=== PATIENT | male | born 1950 ===

== ENCOUNTER 2022-06-22 13:45 | Inpatient (IN) | payer MEDICARE, OTHER ==
[~2022-06-22] VITALS: Ht 185.4 cm; Wt 120.4 kg
[2022-06-22] MEDS ORDERED: SODIUM CHLORIDE 0.9% 1,000 ML IV ONE ×3 (14:00→21:45)
[2022-06-22] MEDS ORDERED: ASPirin 325 MG TAB PO ONE (14:00)
[2022-06-22 14:28] LABS: Basophils # (auto) 0 10 ^3/uL (0-0.2); Basophils % (auto) 0.3 % (0.0-2.0); Eosinophils # (auto) 0 10 ^3/uL (0-0.8); Eosinophils % (auto) 0.1 % (0.0-7.0); Hemoglobin 14.7 g/dL (13.5-17.5); Lymphocytes # (auto) 0.8 10 ^3/uL (0.4-5.4); Mean Corpuscular Hemoglobin 28.7 pg (28.0-32.0); Mean Corpuscular Hgb Conc. 31.8 g/dL (32.0-36.0); Mean Corpuscular Volume 90.2 fL (80.0-100.0); Monocytes # (auto) 0.5 10 ^3/uL (0-1.3); Monocytes % (auto) 3.1 % (0.0-12.0); Neutrophils # (auto) 15.6 10 ^3/uL (1.6-8.6); Neutrophils % (auto) 91.5 % (37.0-80.0); Nucleated Red Blood Cells % 0.1 %; Red Cell Distribution Width 14.9 % (11.8-14.3)
[2022-06-22 14:39] LABS: Albumin 3.5 g/dL (3.4-5.0); BUN/Creatinine Ratio 11.6; Calcium 10.3 mg/dL (8.5-10.1); Potassium 4.3 mmol/L (3.5-5.1)
[2022-06-22 14:42] LABS: Bilirubin, Total 1.4 mg/dL (0.2-1.0); Total Protein 7.8 g/dL (6.4-8.2)
[2022-06-22 16:27] LABS: Lactic Acid w/Reflex 3.1 mmol/L (0.4-2.0)
[2022-06-22 17:09] LABS: Urine Bacteria FEW /hpf (None Seen); Urine Blood 3+ /uL (Negative); Urine Specific Gravity 1.017 (1.001-1.035); Urine WBC 90 /hpf (0 - 3); Urine WBC Clumps PRESENT /hpf (None Seen)
[2022-06-22] MEDS ORDERED: cefTRIAXone 1GM/50ML D5W 50 ML IV ONE (18:15)
[2022-06-22] MEDS ORDERED: LOVA40TA72 PO (20:30)
[2022-06-22] MEDS ORDERED: TRIA75TA55 PO (20:30)
[2022-06-22] MEDS ORDERED: GLIM4TAB42 PO (20:30)
[2022-06-22] MEDS ORDERED: TAMS1CAP25 PO (20:30)
[2022-06-22] MEDS ORDERED: HYDR50TA15 PO (20:30)
[2022-06-22] MEDS ORDERED: NITROGLYCERIN 0.4 MG SL TAB SL PRN (21:15)
[2022-06-22] MEDS ORDERED: ONDANSETRON HCL 4 MG/2 ML VIAL IV PRN (21:15)
[2022-06-22] MEDS ORDERED: MORPHINE SULFATE INJ 2 MG/ml SYRG IV PRN (21:15)
[2022-06-22] MEDS ORDERED: ACETAMINOPHEN 325 MG TAB PO ONE (21:45)
[2022-06-22] MEDS ORDERED: VANCOMYCIN PER PHARMACY 0 MG IV SCH (23:30)
[2022-06-22] MEDS ORDERED: ENOXAPARIN SOD 100 MG/1 ML SYRINGE SC ONE (23:30)
[2022-06-22] MEDS: SODIUM CHLORIDE 0.9% 1,000 ML IV SCH (23:40)
[2022-06-22] MEDS ORDERED: VANCOMYCIN 1GM/250ML 500 ML IV ONE (23:45)
[2022-06-22 23:53] LABS: BUN/Creatinine Ratio 12.1; Calcium 9.9 mg/dL (8.5-10.1); Potassium 4.1 mmol/L (3.5-5.1)
[2022-06-23] MEDS ORDERED: SODIUM CHLORIDE 0.9% 500 ML IV ONE (03:00)
[2022-06-23 05:08] LABS: Basophils # (auto) 0 10 ^3/uL (0-0.2); Basophils % (auto) 0.2 % (0.0-2.0); Eosinophils # (auto) 0 10 ^3/uL (0-0.8); Hematocrit 38.6 % (41.0-53.0); Hemoglobin 13.1 g/dL (13.5-17.5); Lymphocytes # (auto) 0.7 10 ^3/uL (0.4-5.4); Lymphocytes % (auto) 5.3 % (10.0-50.0); Mean Corpuscular Hemoglobin 30.1 pg (28.0-32.0); Mean Corpuscular Volume 88.7 fL (80.0-100.0); Monocytes # (auto) 0.4 10 ^3/uL (0-1.3); Monocytes % (auto) 3.2 % (0.0-12.0); Neutrophils # (auto) 11.3 10 ^3/uL (1.6-8.6); Neutrophils % (auto) 91.3 % (37.0-80.0); Red Blood Cells 4.35 10^6/uL (4.5-5.90); Red Cell Distribution Width 14.4 % (11.8-14.3); White Blood Cell 12.4 10^3/uL (4.4-10.8)
[2022-06-23 05:28] LABS: Potassium 3.7 mmol/L (3.5-5.1)
[2022-06-23 05:34] LABS: Albumin 2.8 g/dL (3.4-5.0); BUN/Creatinine Ratio 13.8; Bilirubin, Total 1.1 mg/dL (0.2-1.0); Calcium 9.2 mg/dL (8.5-10.1); Total Protein 6.6 g/dL (6.4-8.2)
[2022-06-23] MEDS: ENOXAPARIN SOD 120 MG/0.8 ML SYRINGE SC SCH (09:04)
[2022-06-23] MEDS: PANTOPRAZOLE 40 MG TAB PO SCH (09:05)
[2022-06-23] MEDS: cefTRIAXone 1GM/50ML D5W 50 ML IV SCH (09:05)
[2022-06-23] MEDS ORDERED: ENOXAPARIN SOD 40 MG/0.4 ML SYRINGE SC SCH (10:00)
[2022-06-23] MEDS: SODIUM CHLORIDE 0.9% 1,000 ML IV SCH (10:42)
[2022-06-23] MEDS: ACETAMINOPHEN 325 MG TAB PO PRN ×2 (11:47→20:18)
[2022-06-23 15:54] VITALS: BP 98/60
[2022-06-23 16:19] VITALS: BP 104/62
[2022-06-23 21:53] VITALS: BP 101/63
[2022-06-24] MEDS: VANCOMYCIN 1GM/250ML 250 ML IV SCH (01:49)
[2022-06-24 05:00] VITALS: BP 114/64
[2022-06-24 06:26] LABS: Basophils # (auto) 0 10 ^3/uL (0-0.2); Basophils % (auto) 0.4 % (0.0-2.0); Eosinophils # (auto) 0.2 10 ^3/uL (0-0.8); Hematocrit 38.5 % (41.0-53.0); Hemoglobin 12.6 g/dL (13.5-17.5); Lymphocytes # (auto) 0.5 10 ^3/uL (0.4-5.4); Lymphocytes % (auto) 6.4 % (10.0-50.0); Mean Corpuscular Hemoglobin 29.6 pg (28.0-32.0); Mean Corpuscular Hgb Conc. 32.6 g/dL (32.0-36.0); Mean Corpuscular Volume 90.8 fL (80.0-100.0); Monocytes # (auto) 0.4 10 ^3/uL (0-1.3); Neutrophils # (auto) 6.3 10 ^3/uL (1.6-8.6); Neutrophils % (auto) 85.2 % (37.0-80.0); Nucleated Red Blood Cells % 0.1 %; Red Blood Cells 4.24 10^6/uL (4.5-5.90); Red Cell Distribution Width 14.5 % (11.8-14.3); White Blood Cell 7.4 10^3/uL (4.4-10.8)
[2022-06-24 06:35] LABS: BUN/Creatinine Ratio 13.4; Calcium 8.8 mg/dL (8.5-10.1); Potassium 3.8 mmol/L (3.5-5.1)
[2022-06-24] MEDS: SODIUM CHLORIDE 0.9% 1,000 ML IV SCH ×2 (07:47→13:15)
[2022-06-24] MEDS: cefTRIAXone 1GM/50ML D5W 50 ML IV SCH (08:49)
[2022-06-24] MEDS: PANTOPRAZOLE 40 MG TAB PO SCH (08:50)
[2022-06-24] MEDS: ENOXAPARIN SOD 120 MG/0.8 ML SYRINGE SC SCH (08:50)
[2022-06-24 09:00] VITALS: BP 116/68
[2022-06-24 12:47] VITALS: BP 115/70
[2022-06-24] MEDS ORDERED: TOLTERODINE TARTRATE 1 MG TAB PO ONE (14:00)
[2022-06-24 16:59] VITALS: BP 127/68
[2022-06-24] MEDS ORDERED: DEXTROSE (50%) 50ML SYRG IV PRN (17:00)
[2022-06-24] MEDS: InsuLIN REG 1unit/0.01ml Soln (100units/ml) SC SCH ×2 (17:00→22:00)
[2022-06-24] MEDS: ACETAMINOPHEN 325 MG TAB PO PRN ×2 (17:02→22:09)
[2022-06-24] MEDS: ACCU-CHEK COMFORT CURVE STRIP VI SCH ×2 (17:55→22:13)
[2022-06-24 22:00] VITALS: BP 117/68
[2022-06-24] MEDS ORDERED: ENOXAPARIN SOD 120 MG/0.8 ML SYRINGE SC SCH (22:00)
[2022-06-24] MEDS: TOLTERODINE TARTRATE 1 MG TAB PO SCH (22:12)
[2022-06-25] MEDS: VANCOMYCIN 1GM/250ML 250 ML IV SCH (01:26)
[2022-06-25] MEDS: SODIUM CHLORIDE 0.9% 1,000 ML IV SCH ×2 (04:19→15:55)
[2022-06-25] MEDS: ACETAMINOPHEN 325 MG TAB PO PRN ×2 (04:20→09:14)
[2022-06-25 05:00] VITALS: BP 127/76
[2022-06-25 06:23] LABS: Basophils # (auto) 0 10 ^3/uL (0-0.2); Basophils % (auto) 0.4 % (0.0-2.0); Eosinophils # (auto) 0.1 10 ^3/uL (0-0.8); Eosinophils % (auto) 2.1 % (0.0-7.0); Hematocrit 36.3 % (41.0-53.0); Hemoglobin 11.9 g/dL (13.5-17.5); Lymphocytes # (auto) 0.5 10 ^3/uL (0.4-5.4); Lymphocytes % (auto) 8.4 % (10.0-50.0); Mean Corpuscular Hemoglobin 29.3 pg (28.0-32.0); Mean Corpuscular Hgb Conc. 32.9 g/dL (32.0-36.0); Mean Corpuscular Volume 89.1 fL (80.0-100.0); Monocytes # (auto) 0.4 10 ^3/uL (0-1.3); Monocytes % (auto) 6.7 % (0.0-12.0); Neutrophils # (auto) 5.1 10 ^3/uL (1.6-8.6); Neutrophils % (auto) 82.4 % (37.0-80.0); Red Blood Cells 4.08 10^6/uL (4.5-5.90); Red Cell Distribution Width 14.4 % (11.8-14.3); White Blood Cell 6.2 10^3/uL (4.4-10.8)
[2022-06-25 06:36] LABS: Calcium 8.4 mg/dL (8.5-10.1); Potassium 3.7 mmol/L (3.5-5.1)
[2022-06-25] MEDS: InsuLIN REG 1unit/0.01ml Soln (100units/ml) SC SCH ×4 (07:00→21:46)
[2022-06-25] MEDS: ACCU-CHEK COMFORT CURVE STRIP VI SCH ×4 (08:05→21:46)
[2022-06-25 09:00] VITALS: BP 116/45
[2022-06-25] MEDS ORDERED: LIDOCAINE 2% JELLY 11ml (GLYDO) UR ONE (09:15)
[2022-06-25] MEDS: TOLTERODINE TARTRATE 1 MG TAB PO SCH ×2 (10:00→21:52)
[2022-06-25] MEDS: cefTRIAXone 1GM/50ML D5W 50 ML IV SCH (11:12)
[2022-06-25] MEDS: PANTOPRAZOLE 40 MG TAB PO SCH (11:12)
[2022-06-25 12:38] VITALS: BP 108/68
[2022-06-25 16:45] VITALS: BP 114/70
[2022-06-25 22:08] VITALS: BP 112/67
[2022-06-26 04:56] VITALS: BP_SYST 137
[2022-06-26] MEDS: SODIUM CHLORIDE 0.9% 1,000 ML IV SCH ×2 (05:37→18:37)
[2022-06-26 06:33] LABS: Basophils # (auto) 0 10 ^3/uL (0-0.2); Basophils % (auto) 0.4 % (0.0-2.0); Eosinophils # (auto) 0.2 10 ^3/uL (0-0.8); Eosinophils % (auto) 3.5 % (0.0-7.0); Hematocrit 37.6 % (41.0-53.0); Hemoglobin 12.2 g/dL (13.5-17.5); Lymphocytes # (auto) 0.7 10 ^3/uL (0.4-5.4); Lymphocytes % (auto) 11.4 % (10.0-50.0); Mean Corpuscular Hemoglobin 28.9 pg (28.0-32.0); Mean Corpuscular Hgb Conc. 32.4 g/dL (32.0-36.0); Mean Corpuscular Volume 89.2 fL (80.0-100.0); Monocytes # (auto) 0.5 10 ^3/uL (0-1.3); Monocytes % (auto) 7.7 % (0.0-12.0); Neutrophils # (auto) 4.6 10 ^3/uL (1.6-8.6); Red Blood Cells 4.22 10^6/uL (4.5-5.90); Red Cell Distribution Width 14.2 % (11.8-14.3); White Blood Cell 5.9 10^3/uL (4.4-10.8)
[2022-06-26] MEDS: ACCU-CHEK COMFORT CURVE STRIP VI SCH ×4 (06:47→21:52)
[2022-06-26] MEDS: InsuLIN REG 1unit/0.01ml Soln (100units/ml) SC SCH ×4 (06:47→21:53)
[2022-06-26 06:52] LABS: Potassium 3.5 mmol/L (3.5-5.1)
[2022-06-26 07:00] LABS: BUN/Creatinine Ratio 13.7; Calcium 8.6 mg/dL (8.5-10.1)
[2022-06-26 09:00] VITALS: BP 124/79
[2022-06-26] MEDS: cefTRIAXone 1GM/50ML D5W 50 ML IV SCH (09:23)
[2022-06-26] MEDS: TOLTERODINE TARTRATE 1 MG TAB PO SCH ×2 (09:23→21:51)
[2022-06-26] MEDS ORDERED: PROPOFOL 10 MG/ML 20 ML IV ONE (10:51)
[2022-06-26] MEDS ORDERED: MIDAZOLAM HCL 2MG/2ML 2ml VIAL (1mg/ml) ONE (10:52)
[2022-06-26] MEDS ORDERED: fentaNYL CITRATE 100 MCG/2 ML VL ONE ×2 (10:52→11:10)
[2022-06-26] MEDS ORDERED: ONDANSETRON HCL 4 MG/2 ML VIAL IV PRN (11:45)
[2022-06-26] MEDS ORDERED: HYDROmorphone HCL 2 MG/ML VL/or syr IV PRN (11:45)
[2022-06-26 13:00] VITALS: BP 115/69
[2022-06-26] MEDS ORDERED: ENOXAPARIN SOD 100 MG/1 ML SYRINGE SC SCH (16:00)
[2022-06-26] MEDS: ENOXAPARIN SOD 100 MG/1 ML SYRINGE SC SCH (16:58)
[2022-06-26 17:00] VITALS: BP 122/67
[2022-06-26 21:41] VITALS: BP 109/67
[2022-06-27] MEDS: ACETAMINOPHEN 325 MG TAB PO PRN (01:38)
[2022-06-27 04:48] VITALS: BP 110/72
[2022-06-27] MEDS: ENOXAPARIN SOD 100 MG/1 ML SYRINGE SC SCH (05:40)
[2022-06-27] MEDS: ACCU-CHEK COMFORT CURVE STRIP VI SCH ×3 (06:30→16:50)
[2022-06-27 06:31] LABS: Basophils # (auto) 0.1 10 ^3/uL (0-0.2); Basophils % (auto) 1.1 % (0.0-2.0); Eosinophils # (auto) 0.4 10 ^3/uL (0-0.8); Eosinophils % (auto) 7.7 % (0.0-7.0); Hematocrit 35.6 % (41.0-53.0); Hemoglobin 11.7 g/dL (13.5-17.5); Lymphocytes # (auto) 0.9 10 ^3/uL (0.4-5.4); Lymphocytes % (auto) 19.2 % (10.0-50.0); Mean Corpuscular Hemoglobin 29.2 pg (28.0-32.0); Mean Corpuscular Hgb Conc. 32.8 g/dL (32.0-36.0); Mean Corpuscular Volume 89.1 fL (80.0-100.0); Monocytes # (auto) 0.3 10 ^3/uL (0-1.3); Neutrophils # (auto) 3.1 10 ^3/uL (1.6-8.6); Red Cell Distribution Width 14.7 % (11.8-14.3); White Blood Cell 4.8 10^3/uL (4.4-10.8)
[2022-06-27] MEDS: SODIUM CHLORIDE 0.9% 1,000 ML IV SCH (06:32)
[2022-06-27 06:47] LABS: BUN/Creatinine Ratio 12.3; Calcium 8.3 mg/dL (8.5-10.1); Potassium 3.7 mmol/L (3.5-5.1)
[2022-06-27] MEDS: InsuLIN REG 1unit/0.01ml Soln (100units/ml) SC SCH ×3 (07:00→16:50)
[2022-06-27 09:00] VITALS: BP 131/73
[2022-06-27] MEDS: TOLTERODINE TARTRATE 1 MG TAB PO SCH ×2 (09:02→16:50)
[2022-06-27] MEDS: cefTRIAXone 1GM/50ML D5W 50 ML IV SCH (09:56)
[2022-06-27] MEDS ORDERED: DESFLURANE 240 ML BOTTLE IN ONE (12:15)
[2022-06-27 13:00] VITALS: BP 118/67
[2022-06-27 15:11] VITALS: BP 118/67
[2022-06-27] MEDS ORDERED: APIXABAN 5 MG TAB PO SCH ×2 (18:00)
[2022-07-04] MEDS ORDERED: APIXABAN 5 MG TAB PO SCH (18:00)
== END 2022-06-27 17:22 | DRG 872 ==
LOC: ER 13:45 → EDBD 13:45 → TELE 21:15 → TELE-CENTR 06-23 14:20
PROVIDERS: ADMIT Nurse Practitioner; ATTEND Internal Medicine
PROC: 3C1ZX8Z Irrigation of Indwelling Device using Irrigating Substance, External Approach (ICD-10-PCS; 2022-06-26)
PROC: 0TP98DZ Removal of Intraluminal Device from Ureter, Via Natural or Artificial Opening Endoscopic (ICD-10-PCS; principal; 2022-06-26 10:48)
DX: A41.9 Sepsis, unspecified organism (principal); I82.402 Acute embolism and thrombosis of unspecified deep veins of left lower extremity; N17.9 Acute kidney failure, unspecified; N12 Tubulo-interstitial nephritis, not specified as acute or chronic; E78.5 Hyperlipidemia, unspecified; E11.22 Type 2 diabetes mellitus with diabetic chronic kidney disease; I12.9 Hypertensive chronic kidney disease with stage 1 through stage 4 chronic kidney disease, or unspecified chronic kidney disease; R65.20 Severe sepsis without septic shock; Z53.9 Procedure and treatment not carried out, unspecified reason; R53.81 Other malaise; N13.9 Obstructive and reflux uropathy, unspecified; N40.1 Benign prostatic hyperplasia with lower urinary tract symptoms; R33.8 Other retention of urine; Z20.822 Contact with and (suspected) exposure to COVID-19; R31.9 Hematuria, unspecified; N18.30 Chronic kidney disease, stage 3 unspecified; E66.9 Obesity, unspecified; Z68.35 Body mass index [BMI] 35.0-35.9, adult; Z79.4 Long term (current) use of insulin; Z79.899 Other long term (current) drug therapy; Z68.33 Body mass index [BMI] 33.0-33.9, adult
CPT/HCPCS: 36415; 71045; 74018; 74176; 76775; 78582; 80048; 80053; 81001; 82962; 83605; 83690; 84484; 85025; 85379; 86850; 86900; 86901; 87040; 93005; 93970; 96361; 96365; 96366; 96367; 96372; 97110; 97116; 97530; G0378; J0696; J1815; J2250; J2704